=== PATIENT | female | born 1950 | race Caucasian/White ===

== ENCOUNTER 2024-01-08 21:22 | Emergency (ER) | payer OTHER ==
[~2024-01-08] VITALS: Ht 175.3 cm; Wt 72.6 kg
[2024-01-08] MEDS ORDERED: ACETAMINOPHEN ES 500 MG TABLET ONE (22:28)
[2024-01-08] MEDS ORDERED: PROCHLORPERAZINE EDISYLATE 10 MG/2 ML VIAL ONE (22:28)
[2024-01-08] MEDS ORDERED: diphenhydrAMINE HCL 50 MG/ML VIAL ONE (22:28)
[2024-01-08] MEDS: diphenhydrAMINE HCL 50 MG/ML VIAL IV ONE (22:30)
[2024-01-08] MEDS: PROCHLORPERAZINE EDISYLATE 10 MG/2 ML VIAL IVP ONE (22:30)
[2024-01-08] MEDS: IV NS 0.9% 1,000 ML BAG IV ONE (22:30)
[2024-01-08] MEDS: ACETAMINOPHEN ES 500 MG TABLET PO ONE (22:30)
[2024-01-09] MEDS ORDERED: ONDANSETRON HCL/PF 4 MG/2 ML VIAL ONE (00:13)
[2024-01-09] MEDS ORDERED: KETOROLAC TROMETHAMINE 15 MG/ML VIAL ONE (00:13)
[2024-01-09] MEDS: KETOROLAC TROMETHAMINE 15 MG/ML VIAL IV ONE (00:19)
[2024-01-09] MEDS: ONDANSETRON HCL/PF - ER 4 MG/2 ML VIAL IV ONE (00:19)
[2024-01-09 00:56] VITALS: BP 110/62; TEMP 98; O2SAT 99
== END 2024-01-09 01:01 | disposition home or self-care (01) ==
LOC: ER 21:30
DX: G43.909 Migraine, unspecified, not intractable, without status migrainosus (principal); R11.2 Nausea with vomiting, unspecified
CPT/HCPCS: 99284; 96374; 96361; 96375 ×2; J0780; J1200; J7030; J2405 ×2; J1885